=== PATIENT | female | born 1970 | race Caucasian/White ===

== ENCOUNTER 2017-11-15 12:03 | Day surgery (SDC) | payer BC ==
[~2017-11-15] VITALS: Ht 160 cm; Wt 65.2 kg
[~2017-11-15 12:03] MED LIST: CALCIUM + D3 E1 EACH; Ibuprofen Ib200 MG
[2017-11-15] MEDS ORDERED: Super B Comple150 MG (13:16)
== END 2017-11-15 15:05 | disposition home or self-care (01) ==
LOC: ORSCSDS 12:03
PROVIDERS: Internal Medicine Gastroenterology
PROC: 0DJD8ZZ Inspection of Lower Intestinal Tract, Via Natural or Artificial Opening Endoscopic (ICD-10-PCS; principal; 2017-11-15 13:15)
DX: Z12.11 Encounter for screening for malignant neoplasm of colon (principal); K64.4 Residual hemorrhoidal skin tags; K64.8 Other hemorrhoids; Z87.891 Personal history of nicotine dependence
CPT/HCPCS: J7120

== ENCOUNTER → 2019-08-13 | Outpatient (CLI) | payer BC ==
[~2019-08-13] MED LIST changes: +Super B Comple150 MG
== END | disposition home or self-care (01) ==
LOC: LAB SHORT 08:30 → PLD 08:30
DX: L57.0 Actinic keratosis (principal)
CPT/HCPCS: 88305

== ENCOUNTER → 2019-08-15 | Outpatient (CLI) | payer BC | END | disposition home or self-care (01) | LOC: LAB SHORT 09:20 → LAB 09:20 | PROVIDERS: Nurse Practitioner | DX: Z01.419 Encounter for gynecological examination (general) (routine) without abnormal findings (principal) | CPT/HCPCS: G0145 ==

== ENCOUNTER → 2020-08-19 | Outpatient (CLI) | payer BC | LOC: LAB SHORT 16:58 → LAB 16:58 | PROVIDERS: Nurse Practitioner | DX: Z01.419 Encounter for gynecological examination (general) (routine) without abnormal findings (principal) | CPT/HCPCS: G0145 ==

== ENCOUNTER → 2022-10-15 | Outpatient (CLI) | payer BC ==
[2022-10-20 16:11] LABS: HPV 16 Negative (Negative); HPV 18 Negative (Negative); HPV OTHER HR TYPES Negative (Negative)
== END | disposition home or self-care (01) ==
LOC: LAB SHORT 13:17 → LAB 13:17
PROVIDERS: Family Medicine
DX: Z01.419 Encounter for gynecological examination (general) (routine) without abnormal findings (principal)
CPT/HCPCS: 87624; G0145